=== PATIENT | male | born 1980 | race Caucasian/White ===

== ENCOUNTER 2021-04-24 02:48 | Inpatient (IN) | payer BC, OTHER ==
[2021-04-24] VITALS (7 sets, daily range): BP systolic 106–133; BP diastolic 56–84
[~2021-04-24] VITALS: Ht 182.9 cm; Wt 98.0 kg
[2021-04-24 03:10] LABS: BE(vivo) 5.5 mmol/L (-2 to +3); HCO3 27.8 mmol/L (22.0-26.0); PCO2 33.4 mmHg (35.0-45.0); pH 7.538 (7.360-7.450); sO2 89.2 % (92.0-98.0)
[2021-04-24 03:13] LABS: PO2 48.8 mmHg (80.0-100.0)
[2021-04-24 03:23] LABS: ABSOLUTE NEUTROPHILS 7.8 thou/uL (1.4-8.2); BASOPHILS 0.1 % (0.0-2.0); HEMATOCRIT 37.2 % (42.0-52.0); HEMOGLOBIN 13.1 gm/dL (14.0-18.0); LYMPHOCYTES 12.4 % (24.0-44.0); MCHC 35.1 g/dL (28.0-37.0); MCV 82.8 fL (80.0-100.0); MONOCYTES 3.4 % (1.0-8.0); PLATELET COUNT 200 thou/uL (150-400); POLYS 84.1 % (36.0-66.0); RBC 4.49 mil/uL (4.50-6.00); RDW 13.8 % (10.5-14.5); WBC 9.3 thou/uL (4.0-11.0)
[2021-04-24 03:31] LABS: CALCIUM 8.4 mg/dL (8.5-10.1); CREATININE 1.4 mg/dL (0.7-1.3); POTASSIUM 3.2 mmol/L (3.5-5.1)
--- NOTE | 2021-04-24 03:35 | NUR ---
updated pt's , Danae, re: visitation policy and plan of care. Assured her that we would call with any updates.
[2021-04-24 03:40] LABS: MAGNESIUM 2.3 mg/dL (1.8-2.4); TOTAL BILIRUBIN 0.7 mg/dL (0.2-1.0); TOTAL PROTEIN 6.7 g/dL (6.4-8.2)
[2021-04-24] MEDS ORDERED: PREDNISONE 20 M20 MG PO (04:20)
--- NOTE | 2021-04-24 19:10 | NUR ---
REPORT GIVEN TO SUMANTH UNGER AT THIS TIME
--- NOTE | 2021-04-24 22:45 | NUR ---
PT ARRIVED FROM ER VIA CART, BIPAP WAS ON AT 75% FI02. PT ATTACHED TO ICU MONITORS AND ASSESSED PER ICU PROTOCOL. BIPAP DOWN TO 70% FIO2, PT SATING 98%. PT A&O X 4, NO C/O PAIN. ADMISSION HX OBTAINED. (CARLITA) CALLED AND GIVEN ROOM INFORMATION, SECURITY CODE, AND ALL QUESTIONS ANSWERED.
[2021-04-25] VITALS (54 sets, daily range): BP systolic 102–139; BP diastolic 47–87
[2021-04-25 03:12] LABS: ABSOLUTE NEUTROPHILS 7.4 thou/uL (1.4-8.2); BASOPHILS 0.1 % (0.0-2.0); HEMATOCRIT 34.4 % (42.0-52.0); HEMOGLOBIN 11.8 gm/dL (14.0-18.0); LYMPHOCYTES 8.2 % (24.0-44.0); MCH 28.6 pg (26.0-34.0); MCHC 34.1 g/dL (28.0-37.0); MCV 83.7 fL (80.0-100.0); MONOCYTES 5.4 % (1.0-8.0); PLATELET COUNT 201 thou/uL (150-400); POLYS 86.3 % (36.0-66.0); RBC 4.11 mil/uL (4.50-6.00); RDW 13.6 % (10.5-14.5); WBC 8.5 thou/uL (4.0-11.0)
[2021-04-25 05:27] LABS: ALBUMIN 2.4 g/dL (3.4-5.0); CALCIUM 7.5 mg/dL (8.5-10.1); CREATININE 0.9 mg/dL (0.7-1.3); DIRECT BILIRUBIN 0.1 mg/dL (<0.1-0.2); MAGNESIUM 2.7 mg/dL (1.8-2.4); PHOSPHORUS 2.6 mg/dL (2.5-4.9); POTASSIUM 4.1 mmol/L (3.5-5.1); TOTAL BILIRUBIN 0.5 mg/dL (0.2-1.0); TOTAL PROTEIN 5.8 g/dL (6.4-8.2)
--- NOTE | 2021-04-25 08:27 | NUR ---
Chart review, Covid +, unable to visit with gil r/t enhanced isolation, and requiring use of bipap for SOA 70-100% FIO2. Noted he lives at home with and children. Independent. Not had the covid vaccine. Will cont following as needed for dc needs.
--- NOTE | 2021-04-25 08:48 | EKG ---
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 : 1980 Requested By: Ange Sánchez Order Number: [id number] : Ananda Olivares Measurements Intervals [place] Rate: 141 P: 33 LA: 113 QRS: 0 QRSD: 103 T: -17 QT: 293 QTc: 449 Interpretive Statements Sinus tachycardia Consider right atrial enlargement No previous ECG available for comparison Electronically Signed On 04-25-2021 8:48:04 CDT by Ananda Olivares [email or web address] <ELECTRONICALLY SIGNED> By: Ananda Olivares MD, [facility] 04/25/21 0848 0300 0300 Ananda Olivares MD, FACC /EPI
--- NOTE | 2021-04-25 10:24 | HC ---
[facility] [place] [address] CONSULTATION Name: RONNA CLAIRE Room #: [facility]- ADM IN M.R.#: [id number] Admission: 04/24/21 Attend Phys: Randy Olivera MD Discharge: Date of : 80 Report #: [id number] THIS REPORT FOR: cc: [facility] - Clinic physician unknown [facility] - Clinic physician unknown Troy Doyle MD ~ DATE OF SERVICE: 04/24/2021 INFECTIOUS DISEASE CONSULTATION ATTENDING PHYSICIAN: Dr. Olivera. REASON FOR EVALUATION: COVID-19 infection, complicated by pneumonitis and respiratory failure. HISTORY OF PRESENT ILLNESS: The patient examined. This is a 41-year-old gentleman without significant medical history, who has been ill for roughly a week. He noted it started with fevers, developed some mild dyspnea, cough and subsequent loss of taste and smell. Due to the latter, he did get a COVID test which was positive on 04/21/2021. He was placed on prednisone; however, over the course of the hours prior to his presentation, he was worse. He was found to have saturations on room air that are quite low in the 40s and fever to 102. He was placed on supplemental oxygen initially, on BiPAP at 100%. He is currently on nasal cannula. Initial ABG showed a pH of 7.53, pCO2 of 33.4, pO2 of 48.8. Lactic acid was normal at 1.7. Creatinine was slightly elevated at 1.4. Estimated GFR of 56. Chest x-ray did show bilateral opacities. He was initiated on combination therapy with azithromycin, ceftriaxone as well as remdesivir. Also, receiving methylprednisolone. ALLERGIES: None known. MEDICATIONS: As noted above, the antibiotics, methylprednisolone, famotidine, acetaminophen, enoxaparin, remdesivir. PAST MEDICAL HISTORY: Otherwise, unremarkable. SOCIAL HISTORY: Unremarkable. FAMILY HISTORY: Noncontributory. REVIEW OF SYSTEMS: As above. PHYSICAL EXAMINATION: GENERAL: He is alert, in moderate distress, well nourished. He is lucid. VITAL SIGNS: Temperature 103, pulse 97, respirations 28, blood pressure 123/72. SKIN: Warm, dry, no rashes. [facility] [address] [place] [address] CONSULTATION Name: RONNA CLAIRE Room #: 245-P [facility] IN [facility].#: [id number] Admission: 04/24/21 Attend Phys: Randy Olivera MD Discharge: Date of : 80 Report #: [id number] HEENT: Normocephalic. Extraocular muscles intact. NECK: Supple. LUNGS: Few scattered coarse breath sounds, somewhat diminished. HEART: Borderline tachycardic, regular. I do not appreciate a murmur. ABDOMEN: Slightly distended, slightly firm, nontender. GENITOURINARY AND RECTAL: Deferred. LABORATORY DATA: Procalcitonin 3.40. D-dimer 2.27. CRP 156. Lactic acid 1.7. Electrolytes: Sodium 135, potassium 3.2, chloride 96, bicarbonate is 32, anion gap of 7, BUN and creatinine 24 and 1.4, AST of 82, glucose of 132, ALT of 75, total protein of 6.7, albumin 3.0, estimated GFR 56. White count of 9.3, H and H 13.1 and 37.2, platelets of 200. ASSESSMENT AND PLAN: COVID-19 infection, complicated by pneumonitis and respiratory failure with acute respiratory distress syndrome. We will continue current approach. There may well be a secondary bacterial pneumonia with redevelopment after initial fevers. Continue empiric therapy, antibacterials and also directed therapy with remdesivir with baricitinib in addition to corticosteroids. We will add vitamins as well. Continue oxygen support as required, wean off as allowed. Monitor expectantly. <ELECTRONICALLY SIGNED> By: Troy Doyle MD 04/25/21 1024 1221 10 Troy Doyle MD /nt
--- NOTE | 2021-04-25 12:03 | NUR ---
Hypoxic respiratory failure with suspected SARS CoV 2 pneumonia. On Bipap at 100% FI02/. Per attending MD AM review: CM will follow for discharge needs once identified after MD review and therapy evaluations. Beti at [phone] involved in care as patient lives in home with spouse and their children. is being updated by CM, nursing and MD teams and CM will continue to follow.
--- NOTE | 2021-04-25 19:37 | NUR ---
Patient is progressing towards goal. Started my shift on 100% bipap, able to wean down to hi flow 70% 30L. Patient able to prone, get to bed side chair, using incentive spirometer. Following POC.
[2021-04-26] VITALS (17 sets, daily range): BP systolic 106–132; BP diastolic 59–92
[2021-04-26 06:25] LABS: MCH 28.5 pg (26.0-34.0); MCHC 34.3 g/dL (28.0-37.0); MCV 83.1 fL (80.0-100.0); RBC 4.21 mil/uL (4.50-6.00); RDW 13.6 % (10.5-14.5); WBC 12.3 thou/uL (4.0-11.0)
[2021-04-26 07:03] LABS: ALBUMIN 2.3 g/dL (3.4-5.0); CALCIUM 7.3 mg/dL (8.5-10.1); CREATININE 0.8 mg/dL (0.7-1.3); DIRECT BILIRUBIN 0.2 mg/dL (<0.1-0.2); POTASSIUM 4.1 mmol/L (3.5-5.1); TOTAL BILIRUBIN 0.6 mg/dL (0.2-1.0); TOTAL PROTEIN 5.5 g/dL (6.4-8.2)
--- NOTE | 2021-04-26 10:47 | NUR ---
Discussed during los with hospitalist, possible able to move out of icu today.
--- NOTE | 2021-04-26 17:33 | NUR ---
Patient progressing towards goal. Has been up in chair most of the day. Is doing incentive spirometry exercises 10x/hr, can get up to [id number]. Same settings on HFNC, with some desatturation when getting up to use bedside commode and with activity. Patient O2 down to 85-89% and is able to recover quickly after activity.
--- NOTE | 2021-04-26 18:20 | NUR ---
Patient transported to 354 on 15L NC, O2 sats 99%, tolerated well.
--- NOTE | 2021-04-26 19:27 | NUR ---
PT RECEIVED FROM ICU VIA WHEELCHAIR, AAOX4, CALM, PLEASANT.VSS ON ARRIVAL TO UNIT. NEB TX GIVEN BY RT, PT PLACED ON 10L HI FLOW NC, POX 95-98%, IN NAD. PT DENIES SOB AT THIS TIME. RN ORIENTED PT TO ROOM & UNIT, PT INSTUCTED TO USE CALL LIGHT FOR TOILETING OR ASSISTANCE WITH GETTING OOB, OR IF HE HAS ANY NEEDS - PT VERBALIZED UNDERSTANDING. PT CURRENTLY RESTING IN BED, CALL LIGHT IN REACH. REPORT GIVEN TO ONCOMING SUMANTH ANAYA.
--- NOTE | 2021-04-27 02:29 | NUR ---
became anxious around 0200. o2 sats hovering around 90. gave a dose of xanax, and some hot tea for his dry cough. resting quietlly at this time.
[2021-04-27 03:55] VITALS: BP 136/91
--- NOTE | 2021-04-27 04:38 | NUR ---
maintained on 11 -15 liters until about 0300. Back onto the optiflo at 70% /50 Liters. resting more quietly at this time.
[2021-04-27 05:11] LABS: ALBUMIN 2.3 g/dL (3.4-5.0); CALCIUM 7.3 mg/dL (8.5-10.1); CREATININE 0.8 mg/dL (0.7-1.3); DIRECT BILIRUBIN 0.2 mg/dL (<0.1-0.2); PHOSPHORUS 3.6 mg/dL (2.5-4.9); POTASSIUM 4.6 mmol/L (3.5-5.1); TOTAL BILIRUBIN 0.6 mg/dL (0.2-1.0); TOTAL PROTEIN 4.8 g/dL (6.4-8.2)
[2021-04-27 07:30] VITALS: BP 125/89
[2021-04-27 09:52] LABS: ABSOLUTE NEUTROPHILS 10.5 thou/uL (1.4-8.2); HEMATOCRIT 36.4 % (42.0-52.0); LYMPHOCYTES 3.6 % (24.0-44.0); MCH 27.5 pg (26.0-34.0); MCHC 32.9 g/dL (28.0-37.0); MCV 83.7 fL (80.0-100.0); MONOCYTES 3.8 % (1.0-8.0); PLATELET COUNT 255 thou/uL (150-400); POLYS 92.6 % (36.0-66.0); RBC 4.35 mil/uL (4.50-6.00); RDW 13.2 % (10.5-14.5); WBC 11.3 thou/uL (4.0-11.0)
--- NOTE | 2021-04-27 15:13 | NUR ---
YOU reviewed chart and spoke with nursing and attending physician. Pt was transferred to from ICU. Pt remains in Enhanced Isolation due to COVID. Pt is afebrile and requiring optiflow. Pt is on IV abx, IV steroids and Remdesivir. Therapy evals ordered today. No weekend discharge planned. SW requested 5N rehab care assistant to follow to see if a 5N consult will be needed. YOU placed call to pt's room. No answer. YOU is following to assist as needed with discharge planning.
[2021-04-27 15:23] VITALS: BP 117/67
[2021-04-27 20:03] VITALS: BP 133/88
--- NOTE | 2021-04-28 03:42 | NUR ---
encouraged use of the Insentive spirometery at bedside. he has put himself into the prone position tonight for about two hours. she has been keeping o2 sats greater than 902% consistently. denies pain. resting much more comfortably tonight.
[2021-04-28 04:00] VITALS: BP 124/86
[2021-04-28 05:29] LABS: ALBUMIN 2.4 g/dL (3.4-5.0); CALCIUM 7.4 mg/dL (8.5-10.1); CREATININE 0.8 mg/dL (0.7-1.3); DIRECT BILIRUBIN 0.2 mg/dL (<0.1-0.2); PHOSPHORUS 3.2 mg/dL (2.5-4.9); POTASSIUM 4.3 mmol/L (3.5-5.1); TOTAL BILIRUBIN 0.6 mg/dL (0.2-1.0); TOTAL PROTEIN 5.6 g/dL (6.4-8.2)
[2021-04-28 05:49] LABS: ABSOLUTE NEUTROPHILS 8.3 thou/uL (1.4-8.2); BASOPHILS 0.2 % (0.0-2.0); EOSINOPHILS 0.1 % (0.0-3.0); HEMATOCRIT 36.8 % (42.0-52.0); HEMOGLOBIN 12.3 gm/dL (14.0-18.0); LYMPHOCYTES 5.9 % (24.0-44.0); MCH 27.9 pg (26.0-34.0); MCHC 33.4 g/dL (28.0-37.0); MCV 83.5 fL (80.0-100.0); MONOCYTES 3.8 % (1.0-8.0); PLATELET COUNT 279 thou/uL (150-400); RBC 4.41 mil/uL (4.50-6.00); RDW 13.4 % (10.5-14.5); WBC 9.2 thou/uL (4.0-11.0)
[2021-04-28 07:55] VITALS: BP 130/84
[2021-04-28 11:17] VITALS: BP 126/62
[2021-04-28 15:23] VITALS: BP 129/80
[2021-04-28 20:12] VITALS: BP 136/91
[2021-04-29 03:40] VITALS: BP 139/70
[2021-04-29 06:05] LABS: HEMATOCRIT 36.1 % (42.0-52.0); HEMOGLOBIN 12.4 gm/dL (14.0-18.0); MCH 28.4 pg (26.0-34.0); MCHC 34.4 g/dL (28.0-37.0); MCV 82.6 fL (80.0-100.0); PLATELET COUNT 285 thou/uL (150-400); RBC 4.37 mil/uL (4.50-6.00); RDW 13.4 % (10.5-14.5); WBC 8.2 thou/uL (4.0-11.0)
--- NOTE | 2021-04-29 06:33 | NUR ---
Up in the chair at HS. Optiflow 35L/60% FIO2 with O2 sat in the mid to upper 90's. Encouraged use of IS .He slept fair during the night in prone position. Cont. on enhanced precaution , afebrile. ST with activities otherwise SR. Making some progress towards care plan goals.
[2021-04-29 06:56] LABS: ALBUMIN 2.4 g/dL (3.4-5.0); CALCIUM 7.9 mg/dL (8.5-10.1); CREATININE 0.8 mg/dL (0.7-1.3); DIRECT BILIRUBIN 0.2 mg/dL (<0.1-0.2); TOTAL BILIRUBIN 0.5 mg/dL (0.2-1.0); TOTAL PROTEIN 5.2 g/dL (6.4-8.2)
[2021-04-29 07:17] VITALS: BP 150/89
[2021-04-29 07:54] LABS: PLATELET ESTIMATE NORMAL
[2021-04-29 11:28] VITALS: BP 151/72
[2021-04-29 15:17] VITALS: BP 139/84
--- NOTE | 2021-04-29 16:53 | NUR ---
RN ASSUMED PT'S CARE AT 0700AM, PT IS A&OX4, PT IS ON OPTIFLOW O2 35L/MIN. O2 60%, PT'S O2SAT STAYS AT 92-94%, PT HAS SOB WITH ACTIVITIES, PT'S VS ARE STABLE, PT IS CONTINUING TREAT COVID MEDICATIONS, PT DENIES PAIN BY THIS TIME,
[2021-04-29 20:16] VITALS: BP 119/76
[2021-04-30 02:58] VITALS: BP 124/71
[2021-04-30 04:57] LABS: ABSOLUTE NEUTROPHILS 10.2 thou/uL (1.4-8.2); BASOPHILS 0.1 % (0.0-2.0); EOSINOPHILS 0.6 % (0.0-3.0); HEMATOCRIT 35.6 % (42.0-52.0); HEMOGLOBIN 12.3 gm/dL (14.0-18.0); LYMPHOCYTES 8.4 % (24.0-44.0); MCH 28.8 pg (26.0-34.0); MCHC 34.6 g/dL (28.0-37.0); MCV 83.1 fL (80.0-100.0); MONOCYTES 3.7 % (1.0-8.0); PLATELET COUNT 310 thou/uL (150-400); POLYS 87.2 % (36.0-66.0); RBC 4.28 mil/uL (4.50-6.00); RDW 13.2 % (10.5-14.5); WBC 11.7 thou/uL (4.0-11.0)
[2021-04-30 05:32] LABS: ALBUMIN 2.3 g/dL (3.4-5.0); DIRECT BILIRUBIN 0.1 mg/dL (<0.1-0.2); TOTAL BILIRUBIN 0.5 mg/dL (0.2-1.0); TOTAL PROTEIN 5.4 g/dL (6.4-8.2)
[2021-04-30 05:33] LABS: ALBUMIN 2.4 g/dL (3.4-5.0); CALCIUM 7.8 mg/dL (8.5-10.1); CREATININE 0.9 mg/dL (0.7-1.3); PHOSPHORUS 4.5 mg/dL (2.5-4.9)
--- NOTE | 2021-04-30 06:41 | NUR ---
continues on 60% fio2 optiflo. denies pain. he is a bit less anxious as his condition improves. good urine output. he has been using his IS and laying in a prone position in the bed.
[2021-04-30 07:42] VITALS: BP 125/76
[2021-04-30 11:31] VITALS: BP 124/78
--- NOTE | 2021-04-30 14:44 | NUR ---
YOU reviewed chart and spoke with nursing and attending physician. Pt remains in Enhanced Isolation due to COVID. Pt is afebrile and requiring optiflow. Pt is on IV steroids and Remdesivir. Therapy has discharged pt, as he has met their goals. YOU placed call to pt's room. No answer. YOU left voice message on pt's cell phone: [phone]. Requested call back to discuss discharge planning. Plan is for pt to discharge home when medically stable. YOU is following to assist as needed with discharge planning.
[2021-04-30 15:38] VITALS: BP 115/66
--- NOTE | 2021-04-30 19:20 | NUR ---
RN ASSUMED PT'S CARE AT 0700AM, PT IS A&OX4, PT IS ON OPTIFLOW O2 35L/MIN AND O2 55-60%, PT'S O2SAT STAYS AT 93-96%, PT 'S VS ARE STABLE AT DAY SHIFT, PT 'S SOB HAS IMPROVED, PT CAN GET UP TO CHAIR AND BSC WITHOUT ASSIST, PT DENIES PAIN AT DAY SHIFT.
[2021-04-30 19:48] VITALS: BP 117/77
--- NOTE | 2021-04-30 22:32 | NUR ---
PT UP IN CHAIR. OPTIFLO INTACT. LUNGS WITH WHEEZES. PALE SKIN TONE. PT CALLS FOR ASSISTANCE WHEN NEEDED.
--- NOTE | 2021-05-01 02:27 | NUR ---
ASSUMED PT CARE AT 0215.
--- NOTE | 2021-05-01 04:06 | NUR ---
PT STATES HE SLEPT WELL DURING THE NIGHT. HE ALSO STATES THAT HE FEELS LIKE HIS BREATHING IS IMPROVING. THIS MORNING, HE REMAINS ON OPTIFLOW 35L, 48% FIO2. HE DOES GET TACHYCARDIC (HR 120S-130S) WITH ACTIVITY OR EXERTION. GOOD URINE OUTPUT VIA URINAL. PROGRESSING SLOWLY TOWARD POC GOALS. WILL MONITOR FURTHER.
[2021-05-01 05:44] VITALS: BP 11/75; BP 113/75
[2021-05-01 06:26] LABS: ALBUMIN 2.4 g/dL (3.4-5.0); CALCIUM 7.9 mg/dL (8.5-10.1); CREATININE 0.8 mg/dL (0.7-1.3); PHOSPHORUS 3.9 mg/dL (2.5-4.9); POTASSIUM 4.1 mmol/L (3.5-5.1)
[2021-05-01 07:25] VITALS: BP 134/87
--- NOTE | 2021-05-01 10:47 | NUR ---
Nutrition: pt admitted with COVID PNA, respiratory failure and seen due to LOS. No answer on attempts to reach pt by phone. Weight 227# on admit, 216# today. Folow trends. PO intake is good, 75-100% of meals. Pt on steroid, vitamin pack. 04/30 BM. On Optiflow. No PMH. Place as low nutrition risk.
[2021-05-01 11:26] VITALS: BP 119/82
--- NOTE | 2021-05-01 15:18 | NUR ---
SW reviewed chart and spoke with nursing and attending physician. Pt remains in Enhanced Isolation due to COVID. Pt is afebrile and requiring optiflow. Pt is on IV steroids and Remdesivir. YOU spoke with pt via phone. Introduced role of SW. Pt is alert/orientated x 4 and lives at home with his family. Prior to admission, pt was independent with ADLs. No use of DME. Pt works for [employer]. No hx of services or post-acute placement. Pt does not currently have a PCP. Pt interested in establishing care at [facility]. Pt to be provided with [facility] provider list at time of discharge. Plan is for pt to discharge home when medically stable. YOU is following to assist as needed with discharge planning.
[2021-05-01 15:27] VITALS: BP 115/82
[2021-05-01 19:22] VITALS: BP 116/78
--- NOTE | 2021-05-01 20:57 | NUR ---
PT UP IN CHAIR, FACE TIMING WITH FAMILY. OPTI AIDEE INTACT. PT VERBALIZING LOOKING FORWARD TO GOING TO [place] IN AM. PT DISCUSSED CONTINUING TO SLEEP ON HIS STOMACH. LUNGS WHEEZES. PALE SKIN TONE. SOA WITH CONVERSATION.
[2021-05-02 03:52] VITALS: BP 117/80
[2021-05-02 06:27] LABS: ALBUMIN 2.5 g/dL (3.4-5.0); CALCIUM 8.1 mg/dL (8.5-10.1); DIRECT BILIRUBIN 0.1 mg/dL (<0.1-0.2); PHOSPHORUS 3.4 mg/dL (2.6-4.7); POTASSIUM 4.6 mmol/L (3.5-5.1); TOTAL BILIRUBIN 0.5 mg/dL (0.2-1.0); TOTAL PROTEIN 5.7 g/dL (6.4-8.2)
[2021-05-02 07:46] VITALS: BP 110/75
[2021-05-02 11:30] VITALS: BP 106/77
[2021-05-02 11:38] VITALS: BP 135/92
[2021-05-02 16:27] VITALS: BP 108/67
--- NOTE | 2021-05-02 18:20 | NUR ---
RN ASSUMED PT'S CARE AT 0700AM, PT IS A&OX4, PT IS CONTINUING TREAT COVID MEDICATIONS, PT IS OFF OPTILOW AND HE IS O2 3L/MIN/NC AT MOST OF TIME, PT NEEDS O2 5-6L/MIN/NC WHEN PT GETS UP WITH ACITIVIES, PT GETS UP TO BATHROOM WITHOUT ASSIST, PT DENIES PAIN BY THIS TIME.
[2021-05-02 19:05] VITALS: BP 111/70
--- NOTE | 2021-05-03 02:50 | NUR ---
PROGRESS PT A/O X4 ON 3 LITERS O2 LUNGS SOUNDS CLEAR BUT DIMINISHED IN BASES HAS A DRY UNPRODUCTIVE COUGH. TOLERATING AMBULATION WITH INCREASED O2 TO 5 LITERS. ONE MORE DOSE OF REMDESIVIR TODAY AND PT HOPES TO DC HOME ON FRIDAY. USING ISP UP TO 2000 [address] INDEPENDENTLY. VOIDING QS, TELEMETRY INTACT READING SR/SB SLEPT PRONE MOST OF SHIFT TOLERATED WELL. CONTINUE POC.
[2021-05-03 03:22] VITALS: BP 98/61
[2021-05-03 04:58] LABS: ALBUMIN 2.5 g/dL (3.4-5.0); CALCIUM 7.9 mg/dL (8.5-10.1); CREATININE 1.1 mg/dL (0.7-1.3); DIRECT BILIRUBIN 0.2 mg/dL (<0.1-0.2); PHOSPHORUS 4.3 mg/dL (2.5-4.9); POTASSIUM 4.7 mmol/L (3.5-5.1); TOTAL BILIRUBIN 0.5 mg/dL (0.2-1.0)
[2021-05-03 07:28] VITALS: BP 105/67
[2021-05-03 11:39] VITALS: BP 97/63
[2021-05-03] MEDS ORDERED: VITAMIN D325 MC2 PO (12:10)
[2021-05-03] MEDS ORDERED: VITAMIN C1000 MG PO (12:10)
[2021-05-03] MEDS ORDERED: PREDNISONE 20 M20 M1 PO (12:10)
[2021-05-03] MEDS ORDERED: PROAIR HFA8.5 GM INH (12:10)
[2021-05-03] MEDS ORDERED: OXYGEN MISCELL (12:15)
[2021-05-03 13:04] VITALS: BP 97/63
--- NOTE | 2021-05-03 13:10 | NUR ---
DISCHARGE NOTE: YOU reviewed chart and spoke with nursing and attending physician. Pt remains in Enhanced Isolation due to COVID. Pt is afebrile and on O2. Pt is medically stable for discharge home today. Rest/exercise oximetry completed. Pt does qualify for home O2. YOU spoke with pt via phone to provide update and discuss dischargd plan. Pt is aware and in agreement with discharge plan. Options for Home O2 companies provided. No preference voiced. YOU confirmed pt's home address and phone number. Pt states his family will be able to provide transportation home when discharged. YOU faxed home O2 referral, testing and script to [facility] and notified [facility] liaison of new referral. [facility] liaison to deliver portable O2 tank to the hospital soon. Contact info for [facility] placed in pt's discharge summary. YOU also placed info for [facility] provider groups for pt to review and establish primary care. YOU updated pt's nurse. Pt is ready for discharge home once O2 has been delivered. No additional SW needs identified at this time, but is available to assist should needs arise.
--- NOTE | 2021-05-03 16:48 | NUR ---
RN ASSUMED PT'S CARE AT 0700-1640PM, PT IS A&OX4, PT'S SOB AND COUGHING HAVE IMPROVED, PT IS ON O2 3L/MIN/NC AT RESTING AND O4L/MIN/NC AT ACTIVITIES, PT'S VS AND O2SAT ARE NORMAL, RN RECEIVED ORDER TO DC PT TO HOME WITH O2, PT UNDERSTANDED DC TEACHING WELL, INCLUDING NEW MEDICATIONS ( RN FAX PRESCRIPTION TO PT'S PHARMC[facility] ), HOW TO USE O2 AND CALL FOR HELP O2, AND COVID ISOLATION TOTAL 3 WEEKS SINCE POSITIVE TEST, RN HAS SENT PT TO MEET PT'S FAMILY AT [facility]. PT AND PT'S FAMILY ARE HAPPLY WITH PT'S CARE AT 3W UNIT .
== END 2021-05-03 16:59 | disposition home or self-care (01) | DRG 871 ==
LOC: ER 02:48 → EROBS 04:28 → 3W 04:28 → EROBS 04:29 → ICU 22:35 → 3W 04-26 18:33
PROVIDERS: Emergency Medicine; Hospitalist; Internal Medicine Pulmonary Disease; Nurse Practitioner; Specialist; ADMIT Hospitalist; ATTEND Hospitalist
PROC: 5A09357 Assistance with Respiratory Ventilation, Less than 24 Consecutive Hours, Continuous Positive Airway Pressure (ICD-10-PCS; principal; 2021-04-24)
PROC: XW033E5 Introduction of Remdesivir Anti-infective into Peripheral Vein, Percutaneous Approach, New Technology Group 5 (ICD-10-PCS; principal; 2021-04-24)
PROC: 5A0935A Assistance with Respiratory Ventilation, Less than 24 Consecutive Hours, High Flow/Velocity Cannula (ICD-10-PCS; principal; 2021-04-24)
PROC: 5A09357 Assistance with Respiratory Ventilation, Less than 24 Consecutive Hours, Continuous Positive Airway Pressure (ICD-10-PCS; 2021-04-25)
PROC: 5A0945A Assistance with Respiratory Ventilation, 24-96 Consecutive Hours, High Flow/Velocity Cannula (ICD-10-PCS; 2021-04-25)
PROC: 5A0935A Assistance with Respiratory Ventilation, Less than 24 Consecutive Hours, High Flow/Velocity Cannula (ICD-10-PCS; 2021-04-27)
PROC: 5A0935A Assistance with Respiratory Ventilation, Less than 24 Consecutive Hours, High Flow/Velocity Cannula (ICD-10-PCS; 2021-04-28)
DX: A41.9 Sepsis, unspecified organism (principal); U07.1 COVID-19; J12.82 Pneumonia due to coronavirus disease 2019; J80 Acute respiratory distress syndrome; R65.20 Severe sepsis without septic shock; F41.9 Anxiety disorder, unspecified; Z79.899 Other long term (current) drug therapy
CPT/HCPCS: 10078; 10779; 10879

== ENCOUNTER 2021-05-04 05:53 | Emergency (ER) | payer BC, OTHER ==
[~2021-05-04] VITALS: Ht 182.9 cm; Wt 102.1 kg
--- NOTE | ~2021-05-04 | EMS ---
[place] [address] EMS Patient Care Report Name: RONNA CLAIRE Room #: DEP LAURENT Marks#: [id number] Admission: 05/04/21 Attend Phys: Discharge: 05/04/21 Date of : [birth year] Report #: [id number] THIS REPORT FOR: //name// Report Transmitted: 05/07/2021 12:34 EMS Care Summary [place], [place]/[facility] Incident [id number] @ 05/04/2021 05:00 Incident Location [address] [place] [address] Patient RONNA CLAIRE Male, 41 Years 1980 Patient Address [facility] [address] [place] [address] Patient History Novel Coronavirus (COVID-19), Patient Allergies No known allergies, Patient Medications Prednisone, Chief Complaint Shortness of Air Disposition Transported No Lights/[place] Reason Breathing Problem Transported To [facility] Narrative Pt tested positive for Covid on 04-23-21. Pt states that he spent 10 days at hospital. Pt mary that he was sent home on 3lpm O2. Pt was maintaining until around 0430 this morning. Pt woke up feeling short of air. Pt states that he bumped up his O2 and took inhaler. Pt did not have relief[place] [address] EMS Patient Care Report Name: RONNA CLAIRE Room #: DEP [facility]#: [id number] Admission: 05/04/21 Attend Phys: Discharge: 05/04/21 Date of : 80 Report #: [id number] pt sitting outside with O2 on. Pt desats into low 90s when speaking. Pt able to speak in full sentences. Pt transported to [facility]. NO changes en route. Pt care transferred to [place] ED nursing staff. Initial Vitals @05:38P: 121,CO: 3,SpO2: 97, @05:19P: 135,R: 20,BP: 99/65,Pain: 0/10,GCS: 15,CO: 6,SpO2: 94,Revised Trauma: 12, @05:39P: 121,R: 20,BP: 109/61,GCS: 15,CO: 2,SpO2: 96,Revised Trauma: 12, Assessments @05:14MENTAL:Place Oriented,Time Oriented,Event Oriented,Person Oriented,SKIN:HEENT:Head/Face: No Abnormalities,Neck/Airway: No Abnormalities,LUNG SOUNDS:General: No Abnormalities,Left Upper: No Abnormalities,Right Upper: No Abnormalities,Left Lower: No Abnormalities,Right Lower: No Abnormalities,ABDOMEN:General: No Abnormalities,Left Upper: No Abnormalities,Right Upper: No Abnormalities,Left Lower: No Abnormalities,Right Lower: No Abnormalities,PELVIS//GI:No Abnormalities,EXTREMITIES:Left Arm: No Abnormalities,Right Arm: No Abnormalities,Left Leg: No Abnormalities,PULSE:NEURO:No Abnormalities, Impression COVID-19 - Confirmed by testing Procedures @05:14ALS AssessmentResponse: Unchanged@PTASaline Lock 5cc (20 ga) Site: Hand-Right@PTAOxygen FlowRate: 15 Device: Non Re-breather Mask (NRB) Timeline CHRISTIAN COUNSELOR,Saline Lock 5cc 20 ga Site: Hand-Right, CHRISTIAN COUNSELOR,Oxygen FlowRate: 15 Device: Non Re-breather Mask (NRB) 04:59,Call Received 04:59,Dispatch Notified 05:00,Dispatched 05:02,En Route 05:13,On Scene 05:14,At Patient 05:14,ALS Assessment,Response: Unchanged 05:19,BP: 99/65 M,PULSE: 135,RR: 20 R,SPO2: 94 Ox,ETCO2: ,BG: ,PAIN: 0,GCS: 15, 05:23,Depart Scene 05:38,BP: / M,PULSE: 121,RR: R,SPO2: 97 Ox,ETCO2: ,BG: ,PAIN: ,GCS: , 05:39,BP: 109/61 M,PULSE: 121,RR: 20 R,SPO2: 96 Ox,ETCO2: ,BG: ,PAIN: ,GCS: 15, 06:05,At Destination 06:06,Call Closed Disclaimer [facility] [address] [place] [address] EMS Patient Care Report Name: RONNA CLAIRE [facility] [id number] Admission: 05/04/21 Attend Phys: Discharge: 05/04/21 Date of : [birth year] Report #: [id number] v1.1 Copyright 2020 [employer] This EMS Care Summary contains data elements from the applicable legal record (which may be displayed differently). It is designed to provide pertinent information for the following purposes: continuity of care, clinical quality, and state data reporting. The complete legal record is available to ED staff and administrators of the receiving hospital in [employer] Patient Tracker. All data is provided "as is."
[~2021-05-04 05:53] MED LIST: OXYGEN MISCELL; PREDNISONE 20 M20 M1 PO; PREDNISONE 20 M20 MG PO; PROAIR HFA8.5 GM INH; VITAMIN C1000 MG PO; VITAMIN D325 MC2 PO
[2021-05-04 07:02] LABS: HEMATOCRIT 43.4 % (42.0-52.0); HEMOGLOBIN 14.3 gm/dL (14.0-18.0); MCH 27.9 pg (26.0-34.0); MCV 84.5 fL (80.0-100.0); PLATELET COUNT 363 thou/uL (150-400); RBC 5.14 mil/uL (4.50-6.00); RDW 13.7 % (10.5-14.5); WBC 15.9 thou/uL (4.0-11.0)
--- NOTE | 2021-05-04 07:36 | EKG ---
[address] [address] ELECTROCARDIOGRAM REPORT Name: RONNA CLAIRE [id number] Admission: 05/04/21 Attend Phys: Discharge: Date of : 80 Report #: [id number] [facility] ED Test Date: 2021-05-04 Test Time: 06:30:28 Pat Name: RONNA CLAIRE Department: Room: Gender: M Chief Operations Officer: KEVEN : 1980 Requested By: Edin Horn Order Number: [id number] MD: Ananda Olivares Measurements Intervals [place] Rate: 125 P: 26 RI: 115 QRS: 53 QRSD: 97 T: 11 QT: 325 QTc: 469 Interpretive Statements Sinus tachycardia RSR' in V1 or V2, probably normal variant Compared to ECG 04/24/2021 03:00:34 RSR' in V1 or V2 now present Electronically Signed On 05-04-2021 7:35:50 CDT by Ananda Olivares [email or web address] <ELECTRONICALLY SIGNED> By: Ananda Olivares MD, [facility] 05/04/2135 9 Ananda Olivares MD, FACC /EPI
[2021-05-04 09:38] LABS: ABSOLUTE NEUTROPHILS 12.2 thou/uL (1.4-8.2); PLATELET ESTIMATE NORMAL
[2021-05-04 09:48] LABS: CALCIUM 7.9 mg/dL (8.5-10.1); CREATININE 1.1 mg/dL (0.7-1.3); POTASSIUM 3.9 mmol/L (3.5-5.1)
[2021-05-04 09:53] LABS: ALBUMIN 2.5 g/dL (3.4-5.0); TOTAL BILIRUBIN 0.5 mg/dL (0.2-1.0); TOTAL PROTEIN 5.6 g/dL (6.4-8.2)
[2021-05-04 12:00] VITALS: BP 112/77
== END 2021-05-04 12:00 | disposition home or self-care (01) ==
LOC: ER 05:53
PROVIDERS: Emergency Medicine
DX: R06.02 Shortness of breath (principal)

== ENCOUNTER → 2021-07-12 | Outpatient (CLI) | payer BC, OTHER | LOC: RAD 12:52 | PROVIDERS: ATTEND Pediatrics | DX: R06.02 Shortness of breath (principal) ==